=== PATIENT | female | born 1950 | race Caucasian/White ===

== ENCOUNTER 2019-10-12 10:30 | Emergency (ER) | payer MEDICARE, OTHER ==
[~2019-10-12] VITALS: Ht 170.2 cm; Wt 92.3 kg
[~2019-10-12 10:30] MED LIST: ACET-3068 PO; ADV50250 IH; ALBU18HF2 IH; LEVO500T2 PO; LOSA25TA96 PO; METF-436 PO; VAL5T PO
[2019-10-12] MEDS ORDERED: VALA100027 PO (12:29)
[2019-10-12 12:41] VITALS: BP 153/78
[2019-10-12 13:08] LABS: CLARITY,URINE CLEAR (Clear); COLOR,URINE YELLOW (Yellow); GLUCOSE, URINE NEGATIVE (Neg); KETONES,URINE NEGATIVE (Neg); LEUKOCYTE ESTERASE ,URINE NEGATIVE (Neg); NITRITES, URINE NEGATIVE (Neg); OCCULT BLOOD,URINE TRACE-INTACT (Neg); PROTEIN,URINE NEGATIVE (Neg); UROBILINOGEN,URINE 0.2 E.U/dL (0.2-1.0)
[2019-10-12 13:10] LABS: PH,URINE 7.5 (4.8-8.0)
[2019-10-12 13:11] LABS: UA COLLECTION TYPE CLN CATCH MIDSTREAM
[2019-10-12 13:16] LABS: BACTERIA,URINE NONE SEEN /HPF (Neg); SQUAMOUS EPITHELIAL CELL,UR FEW /LPF (FEW)
== END 2019-10-12 12:43 | disposition home or self-care (01) ==
LOC: ER 10:30
DX: B02.9 Zoster without complications (principal); J45.909 Unspecified asthma, uncomplicated; K21.9 Gastro-esophageal reflux disease without esophagitis; E11.9 Type 2 diabetes mellitus without complications; G89.29 Other chronic pain; Z79.899 Other long term (current) drug therapy; Z88.6 Allergy status to analgesic agent; Z88.5 Allergy status to narcotic agent; Z91.040 Latex allergy status
CPT/HCPCS: 81001; 87088; 99283